=== PATIENT | female | born 2005 | race Caucasian/White ===

== ENCOUNTER 2023-04-20 18:59 | Emergency (ER) | payer MEDICAID, SELFPAY ==
[~2023-04-20] VITALS: Ht 167.6 cm; Wt 106.8 kg
[2023-04-20 21:42] LABS: BASO # 0.1 10^3/uL (0.0-0.2); BASO % 0.5 % (0.0-1.0); EOS % 0.2 % (0.0-3.0); HEMATOCRIT 41.1 % (36.0-47.0); HEMOGLOBIN 13.6 g/dl (12.0-15.5); LYMPH # 1.1 10^3/uL (1.5-5.0); LYMPH % 8.2 % (24.0-44.0); MEAN CORPUSCULAR HEMOGLOBIN 31.1 pg (27.0-33.0); MEAN CORPUSCULAR HGB CONC 33.1 g/dl (32.0-36.5); MEAN CORPUSCULAR VOLUME 94.1 fl (80.0-96.0); MONO # 0.7 10^3/uL (0.0-0.8); MONO % 5.3 % (2.0-8.0); NEUTROPHILS # 11.8 10^3/uL (1.5-8.5); NEUTROPHILS % 85.4 % (36.0-66.0); PLATELET COUNT, AUTOMATED 361 10^3/uL (150-450); RED BLOOD COUNT 4.37 10^6/uL (4.00-5.40); WHITE BLOOD COUNT 13.8 10^3/uL (4.0-10.0)
[2023-04-20 22:00] LABS: LIPASE 38 U/L (12-53)
[2023-04-20 22:03] LABS: ALBUMIN 4.3 G/DL (3.2-5.2); ALKALINE PHOSPHATASE 108 U/L (46-116); ALT/SGPT 15 U/L (7.0-40); AST/SGOT 17 U/L (<34); BILIRUBIN,DIRECT 0.2 MG/DL (<0.4); BILIRUBIN,TOTAL 0.5 MG/DL (0.3-1.2); BLOOD UREA NITROGEN 9 MG/DL (9-23); CALCIUM LEVEL 9.7 MG/DL (8.5-10.1); CARBON DIOXIDE LEVEL 28 MMOL/L (20-31); CHLORIDE LEVEL 100 MMOL/L (98-107); CREATININE FOR GFR 0.64 MG/DL (0.55-1.30); GLUCOSE, FASTING 95 MG/DL (60-100); SODIUM LEVEL 137 MMOL/L (136-145); TOTAL PROTEIN 7.7 G/DL (5.7-8.2)
[2023-04-20 22:04] LABS: HCG, SERUM QUALITATIVE NEGATIVE (NEGATIVE)
[2023-04-21] MEDS ORDERED: ONDANSETRON 4MG 2ML VIAL IV ONE (00:20)
[2023-04-21] MEDS ORDERED: PANTOPRAZOLE 40MG VIAL IV ONE (00:20)
[2023-04-21] MEDS ORDERED: ONDA4TAB6 PO (03:17)
[2023-04-21 03:27] VITALS: BP 132/77; TEMP 98.1; O2SAT 98
== END 2023-04-21 03:40 | disposition home or self-care (01) ==
LOC: EDBD 18:59 → M ED 18:59
DX: R11.10 Vomiting, unspecified (principal); H81.4 Vertigo of central origin
CPT/HCPCS: 80048; 80076; 81001; 83690; 84703; 85025; 87486; 87581; 87633; 87798; 87880; 96374; 96375; 99284; C9113; J2405